=== PATIENT | male | born 1955 | race Two or more races ===

== ENCOUNTER 2025-05-24 17:38 | Emergency (ER) | payer MEDICARE, SELFPAY ==
[2025-05-24 17:45] VITALS: BP 134/77; PULSE 87; TEMP 36.8; O2SAT 98; BMI 24.1
[2025-05-24] MEDS: DIPHTH,PERTUSS(ACELL),TET VAC 0.5 ML SYRINGE IM (19:11)
--- NOTE | 2025-05-24 19:28 | ED_ITS ---
Documented by User: Lulu Bradley 05/24/25 22:51 HPI HPI - General Adult General Chief complaint: Skin/Abscess/Foreign Body Stated complaint: LACERATION Time Seen by Provider: 05/24/25 19:18 Source: patient Mode of arrival: walk-in History of Present Illness HPI narrative: 69 year old male presents to the ED for a head injury, facial laceration. He had a trip and fall today. There is a laceration above his right eyebrow. Denies LOC, vision changes, weakness, dizziness, N/V. Denies pain to his neck, back, chest, abdomen, extremities. His family member reports he has been having tr emors and leg swelling the past few days; this is new for him. Denies SOB, cough, weakness, urinary symptoms. Denies recent travel or surgery. Related Data Home Medications ?Medication ?Instructions ?Recorded ?Confirmed amlodipine 10 mg tablet mg 05/24/25 folic acid 400 mcg tablet 05/24/25 lisinopril 40 mg tablet mg 05/24/25 metoprolol succinate 100 mg mg PO 05/24/25 tablet,extended release 24 hr multivitamin with folic acid 400 tab PO 05/24/25 mcg tablet (Daily-Binta (with folic acid)) potassium chloride 20 mEq meq PO 05/24/25 tablet,extended release(part/cryst) Allergies Allergy/AdvReac Type Severity Reaction Status Date / Time No Known Drug Allergies Allergy Verified 05/24/25 17:51 Review of Systems ROS Constitutional Denies: fever, chills or fatigue Eyes Denies: change in vision Ears, nose, mouth, and throat Denies: throat pain or neck pain Cardiovascular Reports: swelling of feet/ankles; Denies: chest pain Respiratory Denies: shortness of breath Gastrointestinal Denies: abdominal pain, nausea, vomiting or diarrhea Genitourinary Denies: painful urination, urinary frequency or urinary urgency Musculoskeletal Denies: back pain, neck pain or extremity pain Integumentary/Breast Reports: other (laceration); Denies: rash Neurological Denies: headache, numbness in extremities, weakness in extremities or dizziness PFSH PFSH Social History Little interest or pleasure in doing things: not at all Feeling down, depressed, or hopeless: not at all Exam Constitutional Vital Signs, click to edit/add: Last Vital Signs Temp 98.3 F 05/24/25 17:45 Pulse 90 05/24/25 22:00 Resp 20 05/24/25 22:00 BP 141/82 05/24/25 22:00 Pulse Ox 99 05/24/25 22:00 O2 Del Method Room Air 05/24/25 22:00 Common normals: no apparent distress and oriented x3 General appearance: cooperative HENMT Common normals: moist oral mucous membranes Head and scalp: laceration; no Turner's sign and no raccoon eyes Nose: external nose normal Mouth: oral and palatal mucosa normal, lip normal and tongue normal Throat: posterior oropharynx normal Other: 2.5 cm horizontal laceration above right eyebrow. Appears superficial. No active bleeding or drainage. No surrounding bruising or swelling. Eye Common normals: PERRL, EOMs intact bilaterally, conjunctivae normal and no scleral icterus Neck & C-Spine General: normal visual inspection Cervical spine: no cervical spine tenderness, no paracervical muscle tenderness and no paracervical muscle spasm Chest Chest: symmetrical chest wall rise Respiratory Common normals: normal respiratory effort Effort & inspection: able to speak in complete sentences and symmetric chest movement Cardio Common normals: regular rate and regular rhythm Back & Pelvis Thoracic spine/upper back: normal to inspection; no thoracic spinal tenderness and no paraspinal muscle tenderness Lumbar spine/lower back: normal to inspection; no lumbar spinal tenderness and no paraspinal muscle tenderness Neuro Common normals: oriented x3, CN's II-XII intact bilaterally, moves all extremities and no focal motor deficits Sensorium/orientation: awake and alert Speech: speech normal Gait (neuro): normal gait Motor exam: tremor Course Vital Signs Vital signs: Vital Signs Temperature 98.3 F 05/24/25 17:45 Pulse Rate 87 05/24/25 17:45 Respiratory Rate 16 05/24/25 17:45 Blood Pressure 134/77 05/24/25 17:45 Pulse Oximetry 98 05/24/25 17:45 Oxygen Delivery Method Room Air 05/24/25 17:45 Temperature 98.3 F 05/24/25 17:45 Pulse Rate 90 05/24/25 22:00 Respiratory Rate 20 05/24/25 22:00 Blood Pressure 141/82 05/24/25 22:00 Pulse Oximetry 99 05/24/25 22:00 Oxygen Delivery Method Room Air 05/24/25 22:00 Medical Decision Making MDM Narrative Medical decision making narrative: CT head was negative for acute findings. His laceration was cleansed. It was closed with Dermabond and steri-strips. Potassium was 2.9 and magnesium 1.7; both were treated. He takes a 20 mEq potassium supplement daily. X-rays of the cervical spine and chest were pending. Care was resumed to Dr. Lee. See his dictation for further evaluation and treatment. Medical Records Medical records reviewed: Yes I reviewed the patient's medical records Lab Data Lab results reviewed: Yes I reviewed the patient's lab results Labs: Lab Results 05/24/25 Range/Units 20:00 WBC 5.7 (4.0-11.0) 10^3/uL RBC 4.18 L (4.70-6.10) 10^6/uL Hgb 14.0 (14.0-18.0) g/dL Hct 39.3 L (42.0-54.0) % MCV 94.0 (80.0-94.0) fL MCH 33.5 (25.9-34.0) pg MCHC 35.6 H (29.9-35.2) g/dL RDW 13.7 (11.0-15.0) % Plt Count 212 (150-450) 10^3/uL MPV 10.0 (9.5-13.5) fL Neut % (Auto) 62.9 (43.0-75.0) % Lymph % (Auto) 28.2 (20.5-60.0) % [place] % (Auto) 6.9 (1.7-12.0) % Eos % (Auto) 0.7 L (0.9-7.0) % Baso % (Auto) 1.1 (0.2-2.0) % Neut # (Auto) 3.6 (1.4-6.5) 10^3/uL Lymph # (Auto) 1.6 (1.2-3.8) 10^3/uL [place] # (Auto) 0.4 (0.3-0.8) 10^3/uL Eos # (Auto) 0.0 (0.0-0.7) 10^3/uL Baso # (Auto) 0.1 (0.0-0.1) 10^3/uL Abs Immat Gran (auto) 0.01 (0.00-0.03) 10^3/uL Imm/Tot Granulo (auto) 0.2 (0.0-0.5) % Sodium 144 (136-145) mmol/L Potassium 2.9 L* (3.5-5.1) mmol/L Chloride 107 (98-107) mmol/L Carbon Dioxide 26.4 (21.0-32.0) mmol/L Anion Gap 13.5 BUN 4.0 L (7.0-18.0) mg/dL Creatinine 0.55 L (0.70-1.30) mg/dL Est GFR ( Amer) >60 (>=60 mL/min/1.73m^2) Est GFR (Non-Af Amer) >60 (>=60 mL/min/1.73m^2) BUN/Creatinine Ratio 7.3 Glucose 188 H (74-106) mg/dL Calcium 8.3 L (8.5-10.1) mg/dL Magnesium 1.7 L (1.8-2.4) mg/dL Total Bilirubin 0.4 (0.2-1.0) mg/dL AST 78 H (15-37) U/L ALT 63 (16-63) U/L Alkaline Phosphatase 141 H (46-116) U/L NT-Pro-B Natriuret Pep 65.0 (<=900.0) pg/mL Total Protein 7.8 (6.4-8.2) g/dL Albumin 3.7 (3.4-5.0) g/dL Globulin 4.1 g/dL Albumin/Globulin Ratio 0.[address] scan - head: Attestation: I have reviewed the pertinent imaging results. Radiologist's impression: CT scan head: 1. Mild generalized brain volume loss. 2. No acute intracranial hemorrhage, mass, infarct, or edema. 3. Mild mucosal thickening in the paranasal sinuses. 4. Dense calcified plaque along the supraclinoid ICA segments. 5. No fracture or foreign body. Discharge Plan Discharge Chief Complaint: Skin/Abscess/Foreign Body Clinical Impression: Head injury, Forehead laceration, Hypokalemia, Hypomagnesemia Patient Disposition: Home, Self-Care Prescriptions / Home Meds: No Action metoprolol succinate 100 mg tablet extended release 24 hr PO folic acid 400 mcg tablet potassium chloride 20 mEq tablet,ER particles/crystals PO amlodipine 10 mg tablet lisinopril 40 mg tablet multivitamin with folic acid [Daily-Binta (with folic acid)] 400 mcg tablet PO Print Language: Slovenian Instructions: Laceration (ED), Head Injury (ED) Additional Instructions: Return to the ER for worsening symptoms. Follow up with your primary care provider for a recheck, further evaluation and treatment. Take your potassium supplement twice daily for the next 3-4 days then return to your once daily prescribed dosing. Referrals: Physician,Non-Staff, [Primary Care Provider] - 1 week Documented by User: Matthew Lee MD 05/25/25 00:53 HPI HPI - General Adult General Chief complaint: Skin/Abscess/Foreign Body Stated complaint: LACERATION Time Seen by Provider: 05/24/25 19:18 Related Data Home Medications ?Medication ?Instructions ?Recorded ?Confirmed amlodipine 10 mg tablet mg 05/24/25 folic acid 400 mcg tablet 05/24/25 lisinopril 40 mg tablet mg 05/24/25 metoprolol succinate 100 mg mg PO 05/24/25 tablet,extended release 24 hr multivitamin with folic acid 400 tab PO 05/24/25 mcg tablet (Daily-Binta (with folic acid)) potassium chloride 20 mEq meq PO 05/24/25 tablet,extended release(part/cryst) Allergies Allergy/AdvReac Type Severity Reaction Status Date / Time No Known Drug Allergies Allergy Verified 05/24/25 17:51 PFSH PFSH Social History Little interest or pleasure in doing things: not at all Feeling down, depressed, or hopeless: not at all Exam Constitutional Vital Signs, click to edit/add: Last Vital Signs Temp 98.3 F 05/24/25 17:45 Pulse 90 05/24/25 22:00 Resp 20 05/24/25 22:00 BP 141/82 05/24/25 22:00 Pulse Ox 99 05/24/25 22:00 O2 Del Method Room Air 05/24/25 22:00 Course Vital Signs Vital signs: Vital Signs Temperature 98.3 F 05/24/25 17:45 Pulse Rate 87 05/24/25 17:45 Respiratory Rate 16 05/24/25 17:45 Blood Pressure 134/77 05/24/25 17:45 Pulse Oximetry 98 05/24/25 17:45 Oxygen Delivery Method Room Air 05/24/25 17:45 Temperature 98.3 F 05/24/25 17:45 Pulse Rate 90 05/24/25 22:00 Respiratory Rate 20 05/24/25 22:00 Blood Pressure 141/82 05/24/25 22:00 Pulse Oximetry 99 05/24/25 22:00 Oxygen Delivery Method Room Air 05/24/25 22:00 Medical Decision Making MDM Narrative Medical decision making narrative: CT head was negative for acute findings. His laceration was cleansed. It was closed with Dermabond and steri-strips. Potassium was 2.9 and magnesium 1.7; both were treated. He takes a 20 mEq potassium supplement daily. X-rays of the cervical spine and chest were pending. Care was resumed to Dr. Lee. See his dictation for further evaluation and treatment. care transferred at end of mid level provider shift. CT brain without acute finding. patient and family informed of the above and patient discharged home Lab Data Labs: Lab Results 05/24/25 Range/Units 20:00 WBC 5.7 (4.0-11.0) 10^3/uL RBC 4.18 L (4.70-6.10) 10^6/uL Hgb 14.0 (14.0-18.0) g/dL Hct 39.3 L (42.0-54.0) % MCV 94.0 (80.0-94.0) fL MCH 33.5 (25.9-34.0) pg MCHC 35.6 H (29.9-35.2) g/dL RDW 13.7 (11.0-15.0) % Plt Count 212 (150-450) 10^3/uL MPV 10.0 (9.5-13.5) fL Neut % (Auto) 62.9 (43.0-75.0) % Lymph % (Auto) 28.2 (20.5-60.0) % [place] % (Auto) 6.9 (1.7-12.0) % Eos % (Auto) 0.7 L (0.9-7.0) % Baso % (Auto) 1.1 (0.2-2.0) % Neut # (Auto) 3.6 (1.4-6.5) 10^3/uL Lymph # (Auto) 1.6 (1.2-3.8) 10^3/uL [place] # (Auto) 0.4 (0.3-0.8) 10^3/uL Eos # (Auto) 0.0 (0.0-0.7) 10^3/uL Baso # (Auto) 0.1 (0.0-0.1) 10^3/uL Abs Immat Gran (auto) 0.01 (0.00-0.03) 10^3/uL Imm/Tot Granulo (auto) 0.2 (0.0-0.5) % Sodium 144 (136-145) mmol/L Potassium 2.9 L* (3.5-5.1) mmol/L Chloride 107 (98-107) mmol/L Carbon Dioxide 26.4 (21.0-32.0) mmol/L Anion Gap 13.5 BUN 4.0 L (7.0-18.0) mg/dL Creatinine 0.55 L (0.70-1.30) mg/dL Est GFR ( Amer) >60 (>=60 mL/min/1.73m^2) Est GFR (Non-Af Amer) >60 (>=60 mL/min/1.73m^2) BUN/Creatinine Ratio 7.3 Glucose 188 H (74-106) mg/dL Calcium 8.3 L (8.5-10.1) mg/dL Magnesium 1.7 L (1.8-2.4) mg/dL Total Bilirubin 0.4 (0.2-1.0) mg/dL AST 78 H (15-37) U/L ALT 63 (16-63) U/L Alkaline Phosphatase 141 H (46-116) U/L NT-Pro-B Natriuret Pep 65.0 (<=900.0) pg/mL Total Protein 7.8 (6.4-8.2) g/dL Albumin 3.7 (3.4-5.0) g/dL Globulin 4.1 g/dL Albumin/Globulin Ratio 0.9 Discharge Plan Discharge Chief Complaint: Skin/Abscess/Foreign Body Clinical Impression: Head injury, Forehead laceration, Hypokalemia, Hypomagnesemia Patient Disposition: Home, Self-Care Prescriptions / Home Meds: No Action metoprolol succinate 100 mg tablet extended release 24 hr PO folic acid 400 mcg tablet potassium chloride 20 mEq tablet,ER particles/crystals PO amlodipine 10 mg tablet lisinopril 40 mg tablet multivitamin with folic acid [Daily-Binta (with folic acid)] 400 mcg tablet PO Print Language: Slovenian Instructions: Laceration (ED), Head Injury (ED) Additional Instructions: Return to the ER for worsening symptoms. Follow up with your primary care provider for a recheck, further evaluation and treatment. Take your potassium supplement twice daily for the next 3-4 days then return to your once daily prescribed dosing. Referrals: Physician,Non-Staff, MD [Primary Care Provider] - 1 week
[2025-05-24 20:16] LABS: Hematocrit 39.3 % (42.0-54.0); Hemoglobin 14.0 g/dL (14.0-18.0); Immature Granulocytes Abs Auto 0.01 10^3/uL (0.00-0.03); Immature Granulocytes Pct Auto 0.2 % (0.0-0.5); Lymphocytes Absolute Auto 1.6 10^3/uL (1.2-3.8); Mean Corpuscular HGB Conc 35.6 g/dL (29.9-35.2); Mean Corpuscular Hemoglobin 33.5 pg (25.9-34.0); Mean Corpuscular Volume 94.0 fL (80.0-94.0); Platelet Count 212 10^3/uL (150-450); Red Blood Count 4.18 10^6/uL (4.70-6.10); White Blood Count 5.7 10^3/uL (4.0-11.0)
[2025-05-24 20:43] LABS: Alanine Aminotransferase 63 U/L (16-63); Albumin Globulin Ratio 0.9; Albumin Level 3.7 g/dL (3.4-5.0); Alkaline Phosphatase 141 U/L (46-116); Aspartate Amino Transferase 78 U/L (15-37); Blood Urea Nitrogen 4.0 mg/dL (7.0-18.0); Calcium 8.3 mg/dL (8.5-10.1); Carbon Dioxide 26.4 mmol/L (21.0-32.0); Chloride 107 mmol/L (98-107); Estimated GFR (African America >60 (>=60 mL/min/1.73m^2); Estimated GFR (Non-African Ame >60 (>=60 mL/min/1.73m^2); Globulin 4.1 g/dL; Glucose 188 mg/dL (74-106); Magnesium 1.7 mg/dL (1.8-2.4); NT Pro B Type Natriuretic Pept 65.0 pg/mL (<=900.0); Total Protein 7.8 g/dL (6.4-8.2)
[2025-05-24 20:51] LABS: Anion Gap 13.5; Sodium 144 mmol/L (136-145)
[2025-05-24 20:52] LABS: Potassium 2.9 mmol/L (3.5-5.1)
[2025-05-24] MEDS: MAGNESIUM SULFATE IN WATER 2 GM/50 ML PREMIX IV (21:03)
[2025-05-24] MEDS: POTASSIUM BICARBONATE/CIT 25 MEQ TABLET EFF 50 MEQ PO (21:03)
[2025-05-24 22:00] VITALS: BP 141/82; PULSE 90; O2SAT 99
== END 2025-05-25 01:03 | disposition home or self-care (01) ==
PROVIDERS: Nurse Practitioner Family; Emergency Provider Internal Medicine
DX: S09.8XXA Other specified injuries of head, initial encounter (principal); S01.81XA Laceration without foreign body of other part of head, initial encounter; W18.39XA Other fall on same level, initial encounter; E87.6 Hypokalemia; E83.42 Hypomagnesemia; Z23 Encounter for immunization
CPT/HCPCS: 36415; 70450; 71045; 72040; 80053; 83735; 83880; 85025; 90471; 96365; 99285; J3475